=== PATIENT | male | born 1985 | race Caucasian/White ===

== ENCOUNTER 2016-09-20 14:23 | Emergency (ER) | payer SELFPAY ==
[~2016-09-20] VITALS: Ht 182.9 cm; Wt 77.7 kg
[2016-09-20 14:25] VITALS: BP 163/89
== END 2016-09-20 16:35 | disposition home or self-care (01) ==
LOC: ED 16:29
DX: S54.21XA Injury of radial nerve at forearm level, right arm, initial encounter (principal); W23.0XXA Caught, crushed, jammed, or pinched between moving objects, initial encounter; Y93.89 Activity, other specified; Y92.89 Other specified places as the place of occurrence of the external cause; Y99.8 Other external cause status
CPT/HCPCS: 99284